=== PATIENT | male | born 1940 | race Caucasian/White ===

== ENCOUNTER 2021-01-09 12:46 | Emergency (ER) | payer MEDICARE ==
[~2021-01-09] VITALS: Ht 172.7 cm; Wt 111.4 kg
== END 2021-01-09 16:23 | disposition home or self-care (01) ==
LOC: ED 12:46
DX: R10.9 Unspecified abdominal pain (principal)
CPT/HCPCS: 74022; 80053; 81001; 83690; 85025; 99284-25